=== PATIENT | female | born 2000 | race African-American/Black ===

== ENCOUNTER 2019-10-25 05:30 | Inpatient (IN) | payer OTHER, SELFPAY ==
[2019-10-25] VITALS (75 sets, daily range): BP systolic 75–128; BP diastolic 34–106; PULSE 73–100; RESP 15–22; TEMP 36.8; O2SAT 98–100; BMI 27.6
--- NOTE | 2019-10-25 04:42 | ED.PREGNANCY ---
HPI - General Chief complaint: OB/Uterine Contractions Stated complaint: preg complications Time Seen by Provider: 10/25/19 04:38 Source: patient Mode of arrival: wheelchair Limitations: no limitations History of Present Illness HPI Narrative: Patient is a 19-year-old female, G2, P0 0010 currently 15 weeks who presents for evaluation of loss of fluids and vaginal bleeding. Patient states began to experience some lower pelvic cramping around 10 PM yesterday evening, and then awakened this morning with a large gush of fluid, went to the bathroom and noticed she had bright red blood on her underwear. She reports severe lower pelvic cramping, feeling as if she is having contractions. Patient has a history of previous , D &C. She denies recent trauma, no recent intercourse. has been complicated by bleeding on the uterus patient reports. Pt states she did have an US which verified means . No dysuria or hematuria. No recent fever, chills, cough, congestion. Last oral intake 10 PM. Patient is unsure of her blood type. Pt states OB care has been at [facility] in [place], [place]. Related Data Home Medications Medication Instructions Recorded Confirmed Daily pkg PO 10/25/19 Allergies Allergy/AdvReac Type Severity Reaction Status Date / Time No Known Allergies Allergy Verified 10/25/19 05:06 Review of Systems Review of Systems: Narrative: CONSTITUTIONAL: Denies fever CARDIOVASCULAR: Denies chest pain RESPIRATORY: Denies cough or dyspnea. GASTROINTESTINAL: Denies abdominal pain, reports pelvic pain : Reports vaginal bleeding SKIN: Denies rash MUSCULOSKELETAL: Denies back pain NEUROLOGIC: Denies headache PMFSH Past Medical History Medical History (Updated 10/25/19 @ 12:42 by Delbert Quigley CRNA) Anemia Asthma Migraines Miscarriage Surgical History Surgical History H/O dilation and curettage Social History Social History Smoking status: Never smoker Gender identity (if verbalized by the patient): Female Exam Narrative: Exam Narrative: GENERAL: Awake, alert, conversant, uncomfortable appearing HEAD: Normocephalic, atraumatic. EYES: PERRLA and EOMI. ENT: Nares clear, no rhinorrhea or epistaxis. Mucous membranes moist. NECK: Supple. CHEST: No respiratory distress, breathing even and non labored HEART: Regular rate, sinus rhythm ABDOMEN:Non distended, non tender : Positive vaginal bleeding, positive placenta visualized, positive parts identified in the vagina EXTREMITIES: Normal range of motion. No edema. SKIN: Warm, dry, no rash. NEURO:No focal deficits. Alert and oriented x3 Course Reevaluation(s) Reevaluation #1: Dr. Tse would like the patient to be admitted under her and transferred over to labor and delivery at this point Date: 10/25/19 Time: 05:12 Consultations Consultation #1: Dr. Tse, on-call RESIDENTIAL INSURANCE INSPECTOR was contacted, is going to speak with labor and delivery to see if patient should be moved over to that department versus transferred Date: 10/25/19 Time: 05:09 Vital Signs Vital signs: Vital Signs Temperature 36.8 C 10/25/19 04:38 Pulse Rate 97 10/25/19 04:38 Respiratory Rate 22 H 10/25/19 04:38 Blood Pressure 117/90 10/25/19 04:38 Pulse Oximetry 98 10/25/19 04:38 Temperature 36.8 C 10/25/19 04:38 Pulse Rate 85 10/25/19 14:01 Respiratory Rate 19 10/25/19 12:00 Blood Pressure 126/73 10/25/19 14:01 Pulse Oximetry 100 10/25/19 12:49 MDM - OB/Uterine Contractions MDM Narrative Medical decision making narrative: Patient is a 19-year-old female who presented for evaluation of severe cramping, vaginal bleeding in the setting of early second trimester . At the time of assessment, patient is very uncomfortable appearing. She cannot walk. There is evidence of vaginal bl
[2019-10-25] MEDS: ONDANSETRON INJ 4 MG/2 ML VIAL IV PUSH ×2 (04:50→07:15)
[2019-10-25] MEDS: SODIUM CHLORIDE 0.9% IV 1,000 ML 999 ML IV CONT (04:53)
[2019-10-25] MEDS: MORPHINE SULFATE 4 MG/ML INJ IV PUSH (05:10)
[2019-10-25 05:20] LABS: Basophils Percent Auto 0.2 % (0.2-1.2); Eosinophils Absolute Auto 0.1 K/mm3 (0-0.3); Eosinophils Percent Auto 1.4 % (0-4.4); Hematocrit 32.2 % (37.0-47.0); Hemoglobin 10.2 g/dL (12.0-15.0); Immature Granulocyte Absolute 0.03 K/mm3 (0.00-0.031); Immature Granulocyte Percent A 0.3 % (0-0.5); Immature Platelet Fraction Pct 4.9 % (0.9-11.2); Lymphocytes Absolute Auto 2.38 K/mm3 (0.9-3.2); Lymphocytes Percent Auto 26.5 % (18.3-44.2); Mean Corpuscular HGB Conc 31.7 g/dl (32-36); Mean Corpuscular Hemoglobin 22.3 pg (26-34); Mean Corpuscular Volume 70.5 fl (80-100); Monocytes Absolute Auto 0.7 K/mm3 (0.1-0.6); Monocytes Percent Auto 7.7 % (2.6-8.5); Neutrophils Absolute Auto 5.7 K/mm3 (1.3-6.7); Neutrophils Percent Auto 63.9 % (45.5-73.1); Platelet Count Result 206 k/mm3 (150-375); Red Blood Count 4.57 M/mm3 (4.2-5.4); Red Cell Distribution Width 17.2 % (11.5-14.5)
[2019-10-25 05:25] LABS: INR 1.1; Prothrombin Time 13.6 Seconds (11.1-14.7)
[2019-10-25 05:26] LABS: Partial Thromboplastin Time 25.8 SECONDS (22.3-36.8)
[2019-10-25] MEDS: LACTATED RINGERS 1,000 ML 125 ML IV CONT ×2 (06:36→09:38)
--- NOTE | 2019-10-25 06:48 | PC.NURSE ---
see obix note
--- NOTE | 2019-10-25 06:55 | PC.NURSE ---
report received from ed charge nurse.
[2019-10-25] MEDS: miSOPROStol 200 MCG TABLET 600 MCG PO (08:02)
[2019-10-25 08:16] LABS: Basophils Percent Auto 0.3 % (0.2-1.2); Eosinophils Absolute Auto 0.1 K/mm3 (0-0.3); Eosinophils Percent Auto 1.1 % (0-4.4); Hematocrit 29.1 % (37.0-47.0); Hemoglobin 9.2 g/dL (12.0-15.0); Immature Granulocyte Absolute 0.02 K/mm3 (0.00-0.031); Immature Granulocyte Percent A 0.3 % (0-0.5); Immature Platelet Fraction Pct 5.1 % (0.9-11.2); Lymphocytes Absolute Auto 1.48 K/mm3 (0.9-3.2); Lymphocytes Percent Auto 19.6 % (18.3-44.2); Mean Corpuscular HGB Conc 31.6 g/dl (32-36); Mean Corpuscular Hemoglobin 22.4 pg (26-34); Mean Corpuscular Volume 70.8 fl (80-100); Monocytes Absolute Auto 0.6 K/mm3 (0.1-0.6); Monocytes Percent Auto 7.6 % (2.6-8.5); Neutrophils Absolute Auto 5.4 K/mm3 (1.3-6.7); Neutrophils Percent Auto 71.1 % (45.5-73.1); Platelet Count Result 189 k/mm3 (150-375); Red Blood Count 4.11 M/mm3 (4.2-5.4); Red Cell Distribution Width 17.2 % (11.5-14.5); White Blood Count 7.5 K/mm3 (4.5-10.0)
[2019-10-25 08:25] LABS: Glucose 93 mg/dL (65-105)
[2019-10-25 09:07] LABS: HIV 1/2 Ab P24 Ag Result Negative (Negative)
[2019-10-25] MEDS: METHYLERGONOVINE MALEATE 0.2 MG/ML VIAL IM (09:10)
[2019-10-25] MEDS: OXYTOCIN 30 UNITS/NS 500 ML 30 UNITS/500 ML BAG 999 UNITS IV CONT (09:50)
[2019-10-25] MEDS: miSOPROStol 200 MCG TABLET 800 MCG (10:04)
[2019-10-25] MEDS: OXYTOCIN 30 UNITS/NS 500 ML 30 UNITS/500 ML BAG 125 UNITS IV CONT (10:13)
--- NOTE | 2019-10-25 10:21 | PM.IMHP ---
H&P: HPI History of Present Illness Chief complaint: IUFD Narrative: Gela Avilez is a 19 year old female @ 15wga who presented to the ER with complaints of pelvic pain, bleeding, and leakage of fluid. She reports routine care in [place] and was told she was having a normal (normal labs and US). Last week she reports being at work and had vaginal bleeding. She was told that maybe a blood vessel burst in her cervix and was placed on bed rest x1wk. She reports the bleeding slowed but continued having spotting until 1-2 days ago. She reports cramping pain starting at ~1030pm last night. She went to sleep and woke up around 250am with severe cramping x1 hour. She states she sat up in bed and instantly felt bleeding and leakage of fluid. When she presented to the ER, on exam she was found to have the feet protruding from the vagina and no heart tones. No fever, chills, CP, vision changes, vaginal discharge. She had not started feeling movement. Review of Systems Constitutional: Constitutional: Denies body ache(s) and Denies chills Eyes: Eyes: Denies blurry vision Cardiovascular: Cardiovascular: Denies chest pain and Denies palpitations Respiratory: Respiratory: Denies cough and Denies dyspnea Gastrointestinal: Gastrointestinal: Reports abdominal pain, Denies nausea and Denies vomiting Genitourinary: Genitourinary: Reports pelvic pain and Reports vaginal discharge (leakage of fluid + vaginal bleeding) Neurologic: Reports headache(s) [facility] Past Medical History Medical History Asthma Miscarriage Surgical History Surgical History H/O dilation and curettage Social History Social History Smoking status: Never smoker Gender identity (if verbalized by the patient): Female Meds Home Medications and Allergies Home Medications Medication Instructions Recorded Confirmed Type [id number] fum-folic ac-om3 pkg PO 10/25/19 History [Daily ] Allergies Allergy/AdvReac Type Severity Reaction Status Date / Time No Known Allergies Allergy Verified 10/25/19 05:06 Vital Signs Vital Signs - 24 hr 07/26/20 04:38 10/25/19 05:15 10/25/19 05:40 Temperature 36.8 C Pulse Rate 97 89 89 Respiratory Rate 22 H 20 20 Blood Pressure 117/90 118/52 L 118/62 Pulse Oximetry 98 100 100 10/25/19 06:13 10/25/19 08:39 10/25/19 09:01 Temperature Pulse Rate 89 89 96 Respiratory Rate Blood Pressure 128/65 126/58 L 112/71 Pulse Oximetry 10/25/19 09:36 10/25/19 09:40 10/25/19 09:41 Temperature Pulse Rate 92 91 Respiratory Rate Blood Pressure 109/62 114/53 L Pulse Oximetry 100 100 10/25/19 09:42 10/25/19 09:46 10/25/19 09:47 Temperature Pulse Rate 85 Respiratory Rate Blood Pressure 116/43 L Pulse Oximetry 100 100 10/25/19 09:51 10/25/19 09:52 10/25/19 09:56 Temperature Pulse Rate 83 84 Respiratory Rate Blood Pressure 109/34 L 112/42 L Pulse Oximetry 100 10/25/19 09:57 10/25/19 10:01 10/25/19 10:02 Temperature Pulse Rate 82 Respiratory Rate Blood Pressure 116/45 L Pulse Oximetry 100 100 10/25/19 10:06 10/25/19 10:07 10/25/19 10:11 Temperature Pulse Rate 81 87 Respiratory Rate Blood Pressure 118/51 L 115/48 L Pulse Oximetry 100 10/25/19 10:12 10/25/19 10:14 10/25/19 10:16 Temperature Pulse Rate Respiratory Rate Blood Pressure Pulse Oximetry 100 100 100 10/25/19 10:17 10/25/19 10:18 10/25/19 10:21 Temperature Pulse Rate 77 78 86 Respiratory Rate Blood Pressure 75/57 L 90/51 L 110/54 L Pulse Oximetry 100 Exam Const: General: in distress (with contractions) mild Resp: Effort & Inspection: normal respiratory effort Cardio: Rate: regular rate : Other: mild vaginal bleedin
--- NOTE | 2019-10-25 10:35 | WPDANESEPPF ---
Anes - Initial Pre Proc Eval Procedure: D&C Date/Time: 10/25/19 10:34 Surgeon: Yary Tse MD Pre Op Diagnosis: IUFD Patient Data Age: 19 Gender: F Height: 1.68 m Weight: 77.5 kg Last Vital Signs Temp 36.8 C 10/25/19 04:38 Pulse 78 10/25/19 12:31 Resp 19 10/25/19 12:00 BP 127/56 L 10/25/19 12:31 Pulse Ox 100 10/25/19 12:39 Allergies Allergy/AdvReac Type Severity Reaction Status Date / Time No Known Allergies Allergy Verified 10/25/19 05:06 Home Medications Medication Instructions Recorded Confirmed Type -hbta fum-folic ac-om3 pkg PO 10/25/19 History [Daily ] Laboratory Tests 10/25/19 10/25/19 10/25/19 04:56 04:56 04:56 WBC 9.0 K/mm3 K/mm3 (4.5-10.0) RBC 4.57 M/mm3 M/mm3 (4.2-5.4) Hgb 10.2 g/dL L g/dL (12.0-15.0) Hct 32.2 % L % (37.0-47.0) MCV 70.5 fl L fl (80-100) MCH 22.3 pg L pg (26-34) MCHC 31.7 g/dl L g/dl (32-36) RDW 17.2 % H % (11.5-14.5) Plt Count 206 k/mm3 k/mm3 (150-375) MPV TNP Immature Gran % (Auto) 0.3 % % (0-0.5) Neut % (Auto) 63.9 % % (45.5-73.1) Lymph % (Auto) 26.5 % % (18.3-44.2) [place] % (Auto) 7.7 % % (2.6-8.5) Eos % (Auto) 1.4 % % (0-4.4) Baso % (Auto) 0.2 % % (0.2-1.2) Lymph # (Auto) 2.38 K/mm3 K/mm3 (0.9-3.2) [place] # (Auto) 0.7 K/mm3 H K/mm3 (0.1-0.6) Eos # (Auto) 0.1 K/mm3 K/mm3 (0-0.3) Baso # (Auto) 0.0 K/mm3 K/mm3 (0.0-0.1) Abs Immat Gran (auto) 0.03 K/mm3 K/mm3 (0.00-0.031) Absolute Neuts (auto) 5.7 K/mm3 K/mm3 (1.3-6.7) Absolute Nucleated RBC 0.0 K/mm3 K/mm3 (0.0-0.012) Nucleated RBC % 0.0 % % (0.0-0.2) % Immature Plt Fraction 4.9 % % (0.9-11.2) PT INR APTT LA PTT Screen dRVVT Screen dRVVT Additional Test Lupus Anticoag Interp Glucose TSH Free T4 Beta HCG, Quant 71445.00 mIU/ML mIU/ML Urine Color Urine Appearance Urine pH Ur Specific [place] Urine Protein Urine Glucose (UA) Urine Ketones Ur Blood (Man) Urine Nitrate Urine Bilirubin Urine Urobilinogen Leukocyte Esterase Rfl Urine RBC Urine WBC Urine Opiates Screen Urine Methadone Screen Ur Barbiturates Screen Ur Phencyclidine Scrn Ur Amphetamine Screen U Benzodiazepines Scrn Urine Cocaine Screen U Cannabinoids Screen Beta-2-GPI IgG Ab Beta-2-GPI IgA Ab Beta-2-GPI IgM Ab Anti-Cardiolipin IgG Ab Anti-Cardiolipin IgA Ab Anti-Cardiolipin IgM Ab RPR CMV IgG Ab CMV IgM Ab HIV 1&2 Ab/P24 Ag 4thGn Blood Type B Positive Antibody Screen Negative Screen TNP Baby's Blood Type TNP Baby's PILY TNP KB Hemoglobin Doses of RhIg Required 0 10/25/19 10/25/19 10/25/19 05:04 07:55 07:55 WBC RBC Hgb Hct MCV MCH MCHC RDW Plt Count MPV Immature Gran % (Auto) Neut % (Auto) Lymph % (Auto) [place] % (Auto) Eos % (Auto) Baso % (Auto) Lymph # (Auto) [place] # (Auto) Eos # (Auto) Baso # (Auto) Abs Immat Gran (auto) Absolute Neuts (auto)
[2019-10-25 10:44] LABS: Free T4 Free Thyroxine 1.19 ng/mL (0.78-2.19)
--- NOTE | 2019-10-25 10:44 | PM.OBPRVD ---
OB - Delivery Note Procedure Delivery date: 10/25/19 events: Premature Rupture of Membrane Delivery augmentation: rupture of membranes (spontaneous; misoprostol procotol then used for augmentation) Delivery monitor: none Route of delivery: breech extraction Laceration description: None Specimen: Yes Estimated blood loss (mL): 600 Anesthesia type: IV sedation Disposition: floor Complications: Retained placenta s/p conscious sedation and bedside D&C with removal of placenta Narrative: On transfer to Labor and delivery, parts were noted to be protruding from the vagina. On gentle digital exam the head was trapped in the cervix. The patient was counseled on all risks and benefits of induction with Misoprostol and possible need of D and C for retained placenta and the appropriate consents were signed. 600 micrograms of misoprostol was placed buccally to help with delivery of the fetus. Approximately 1 hour later the patient reported significant cramping with desire to push. With good maternal effort the head delivered without complications. No movements were noted. The umbilical cord was clamped and cut. The patient and her significant other did not desire to see the fetus. With gentle traction on the cord, the placenta did not detach. Due to concern for cord avulsion and minimal bleeding, plan was made to give the patient Methergine IM and await spontaneous delivery. However after approximately 30 minutes, the patient was having increased bleeding (approximately 200-300 cc) without delivery of the placenta even with maternal pushing. Fentanyl was given IV for pain control to allow for a vaginal exam, however the patient could not tolerate it. The patient was counseled for conscious sedation to allow for manual removal of the placenta with D&C and she consented. Once the patient was comfortable a bimanual exam was performed and the cervix was found to be 3 centimeters dilated with an adherent posterior placenta. The plane between the placenta and uterus was easily dissected using 1 finger and a large portion of the placenta was teased out of the uterus. A gentle curettage was performed using a lap with removal of more placenta tissue, however the cervix remained dilated and bleeding continued. Bedside ultrasound performed showed small amount of tissue remaining in the fundal/posterior wall. A speculum was then placed within the vagina. A gentle curettage using a metal curettage (wanda) was performed with removal of more tissue. Good uterine tone was noted, the cervix close to approximately 1 centimeter, and the bleeding significantly decreased. Repeat bedside ultrasound showed a thin lining. 800 micrograms of Misoprostol was then placed rectally to allow for continued good uterine tone. Sponge, lap, and instrument counts were correct at the end of the procedure. Patient tolerated the procedure well and conscious sedation was weaned off. Baby Date of : 10/25/19 Time of : 09:02 Weeks of gestation at delivery: 15 gender: Ambiguous presentation: breech score one minute: 0 score five minutes: 0 Narrative: demise
--- NOTE | 2019-10-25 10:49 | PC.NURSE ---
RN called Dr. Tse and requested her presence. 0900 Dr. Tse is at bedside assessing patient. Delivery of demise at 0902. at 0935 Marnie Quigley CRNA is at bedside for retained placenta procedure in room 110. 0946 Patient is in [facility]. Placenta is removed with Dr. Tse assistance. Uterus firm, midline, and five below umbilicus.
[2019-10-25 12:38] LABS: Add Urine Microscopic? YES; Appearance Urine Cloudy (Clear); Bilirubin Urine Negative (Negative); Blood Urine 3+ (Negative); Color Urine Red (Yellow); Glucose Urine UA Negative (Negative); Ketones Urine Negative (Negative); Leukocyte Esterase Ur Negative LEU/UL (Negative); Nitrate Urine Negative (Negative); Protein Urine 3+ mg/dL (Negative); RBC Urine >75 /hpf (0-2); Specific Grav Ur 1.015 (1.001-1.035); Urobilinogen Urine Negative mg/dL (<2.0)
[2019-10-25 12:53] LABS: Amphetamine Screen Urine Negative (Negative); Barbiturate Screen Urine Negative (Negative); Benzodiazepines Screen Urine Negative (Negative); Cannabinoid Screen Urine Negative (Negative); Cocaine Screen Urine Negative (Negative); Methadone Screen Urine Negative (Negative); Opiate Screen Urine Positive (Negative); Phencyclidine Screen Urine Negative (Negative)
[2019-10-25] MEDS: ACETAMINOPHEN 500 MG TABLET 1000 MG PO (12:59)
[2019-10-25] MEDS: METHYLERGONOVINE MALEATE 0.2 MG TABLET PO ×2 (13:02→18:17)
[2019-10-25] MEDS: IBUPROFEN 600 MG TABLET PO (15:58)
--- NOTE | 2019-10-25 16:13 | PC.NURSE ---
Met briefly with Pt and FOB; both seem very tired, and appropriately emotional. Share program and support presented to them, to pt, with commitment to f/u with her once she leaves the hospital. Pt agreed to f/u.
[2019-10-25 16:30] LABS: Hematocrit 27.4 % (37.0-47.0); Hemoglobin 8.8 g/dL (12.0-15.0)
[2019-10-25 17:35] LABS: Rubella IgG Antibody > 120.0 IU/ML
--- NOTE | 2019-10-25 18:05 | PC.NURSE ---
Placenta taken to lab. Fetus taken to pathology refrigerator for gross review- copy of Disposition-Notification Form with fetus.
[2019-10-25] MEDS: POLYSACCHARIDE IRON COMPLEX 150 MG CAPSULE PO (18:17)
[2019-10-26 10:07] LABS: Rapid Plasma Reagin Non-Reactive (NonReactive)
[2019-10-28 17:27] LABS: CMV IgG Antibody 0.74 U/mL (<0.60)
[2019-10-29 03:01] LABS: Anti Cardio Antibody IgM 13 MPL (<=12); Anti Cardiolipin Antibody IgA <11 APL (<=11); Anti Cardiolipin Antibody IgG <14 GPL (<=14)
[2019-10-29 19:03] LABS: CMV IgM Antibody <30.00 AU/mL (<30.00)
[2019-10-30 02:47] LABS: Lupus dRVVT 1:1 Mix Interpreta Not Indicated; Lupus dRVVT Screen 32 sec (<=45); PTT-LA Screen 31 sec (<=40)
--- NOTE | 2019-11-02 11:26 | PM.OBDSVD ---
DS: Admitting Diagnosis Admitting Diagnosis Admitting Diagnosis: Complete or unspecified spontaneous without complication DS: Discharge Diagnosis Discharge Diagnosis (1) Vaginal bleeding before 22 weeks gestation: Code(s): O20.9 - Hemorrhage in early , unspecified Status: Acute (2) Miscarriage: Code(s): O03.9 - Complete or unspecified spontaneous without complication Status: Acute OB - DS: Summary OB Procedures : None OB Procedures Intrapartum: Spontaneous Vag Delivery OB Procedures: : Curettage (retained placenta) Peripartum Data Delivery Method: Natural Vaginal Laceration description: None complications: none [place] 1: Gender: Ambiguous Disposition of : (15 weeks) Status at Discharge Functional status at discharge: independent ambulation Overall status at discharge: patient is back to baseline Time Spent with Patient Time attestation: Total time spent providing and/or coordinating discharge services: Exam Const: General: comfortable, no acute distress, alert and awake Resp: Effort & Inspection: normal respiratory effort Cardio: Rate: regular rate GI: Inspection: non-distended GI Palp: Yes Soft to palpation and No Tenderness to palpation present (GI) : Other: normal lochia Psych: Affect: Sad affect present (but appropriate) Attitude: cooperative DS: Data Data Completed and Pending Completed studies during hospitalization: Pending at discharge 10/25/19 15:22 Surgical [PTH] Routine Discharge Plan Discharge Attending physician on discharge: Yary Tse Consulting providers: Jo Ann Osman Discharging Clinician: Yary Tse Anticipated Discharge Date/Time: 10/25/19 20:00 Patient Disposition: Home, Self-Care Activity: pelvic rest Diet: regular Discharge Instructions: Follow-Up: Call your Provider's office for an appointment to be seen in: Return to [facility] for a follow-up visit: Appointment Date/Time: at What to expect at your follow-up visit: Call [phone] if you are unable to keep your appointment time. EPISIOTOMY/PERINEAL CARE: * Until bleeding stops, use your gustavo bottle after urinating * Change your pad frequently throughout the day * You may take sitz baths several times a day (fill your bathtub with warm water and soak for 20 minutes.) Do NOT bathe in the water * No tub baths until seen by your physician - You may shower BLEEDING: * Each individual will experience vaginal bleeding, but it will vary with each situation and individual woman. * Vaginal bleeding will go thru cycles-from bright red, to pinkish to a white, creamy discharge. This is considered normal. You may also experience a brownish discharge which is also normal. DIET AND NUTRITION: * Eat at least 3 regular, well-balanced meals per day: include all 4 food groups daily. * You may prefer 6 small meals. * Drink 6-8 glasses of water or non-caffeinated beverages per day. * Loss of appetite is common with loss. We encourage you to try to eat; this will help with both your physical and emotional health. ACTIVITY: * Rest as much as possible during the day. * Do not exercise or lift anything heavier than 10 pounds (such as laundry or other children.) * Avoid stairs or driving as much as possible, especially if you are taking pain medication. * Do not put anything into the vagina. No douching, tampons, or sexual activity until seen and released by your physician. * Listen to your body, and do not do what is uncomfortable or painful. EMOTIONAL HEALTH: * This is a very difficult and sad time for you and your family, friends, and other children. It may be helpful to refer to the booklets on loss that you received. * It is okay to be sad and to cry. Denial, anger, and guilt are also normal stages that you and your family may
== END 2019-10-25 18:23 | disposition home or self-care (01) | DRG 541 ==
PROVIDERS: Emergency Medicine; Admitting Provider Obstetrics & Gynecology; Visit Provider Obstetrics & Gynecology
DX: O42.912 Preterm premature rupture of membranes, unspecified as to length of time between rupture and onset of labor, second trimester (principal); O36.4XX0 Maternal care for intrauterine death, not applicable or unspecified; O72.0 Third-stage hemorrhage; Z37.1 Single stillbirth; O32.8XX0 Maternal care for other malpresentation of fetus, not applicable or unspecified; Z3A.15 15 weeks gestation of pregnancy
CPT/HCPCS: 36415; 80307; 81001; 82947; 84439; 84443; 84702; 85014; 85018; 85025; 85055; 85460; 85461; 85610; 85613; 85730; 86146; 86147; 86592; 86644; 86645; 86703; 86762; 88300; 88305; 88307; A9270; G0432; J2210; J2270; J2405; J2590; J2704; J3010; J7030; J7120

== ENCOUNTER 2020-04-05 17:16 | Emergency (ER) | payer OTHER, SELFPAY ==
--- NOTE | ~2020-04-05 | US_ITS ---
EXAMINATION: US OB <= 14 weeks fetus EXAM DATE: 04/05/2020 18:24 INDICATION: , 1st trimester. Vaginal bleeding. TECHNIQUE: Pelvic obstetrical transabdominal sonogram was performed by a technologist. There are mu ltiple grayscale and Doppler images available for interpretation. There are no earlier studies of th is gestation for comparison. FINDINGS: Uterus measures 10.3 x 9.5 x 7.8 cm. There is intrauterine gestation sac. pole with heart rate confirmed at 176 beats per minute. The 4.7 cm crown-rump length corresponds to estimated gestational age by ultrasound of 11 weeks 3 days, estimated date of confinement 10/22. Yolk sac is i dentified. There is moderate-sized subchorionic hemorrhage, 30 mm in diameter by up to 7 mm in thickness. There is C shaped hypoechoic to anechoic well-circumscribed region contiguous to the head and neck, possible cystic hygroma or other abnormality. Right ovary is morphologically normal, left not visualized. IMPRESSION: 1. Live intrauterine gestation with moderate size subchorionic hemorrhage. 2. Cystic region along neck, could be cystic hygroma or other anomaly. 3. Consider follow-up ultrasound. Reviewed, dictated and finalized at location [facility] IMPRESSION: 1. Live intrauterine gestation with moderate size subchorionic hemorrhage. 2. Cystic region along neck, could be cystic hygroma or other anom jose j. 3. Consider follow-up ultrasound.
[2020-04-05 17:24] VITALS: BP 115/57; PULSE 19; RESP 18; TEMP 36.4; O2SAT 100
[2020-04-05 17:41] VITALS: BP 111/55; PULSE 71
[2020-04-05 17:43] VITALS: BP 114/54; PULSE 77
[2020-04-05 17:47] VITALS: BP 96/61; PULSE 90
--- NOTE | 2020-04-05 17:55 | ED.PREGNANCY ---
HPI - General Chief complaint: Vaginal Bleeding Stated complaint: 10 wks preg, bloody discharge Time Seen by Provider: 04/05/20 17:20 Source: patient Mode of arrival: ambulatory Limitations: no limitations History of Present Illness HPI Narrative: This patient is a 19 year old female 10 weeks GA who presents for evaluation of bloody vaginal discharge. Patient states she was diagnosed with bacterial vaginosis and she has been taking vaginal antibiotic cream for 4 days. She noticed at 4 pm today that she had bloody discharge in her underwear. She denies abdominal pain or cramping. Her OBGYN is Dr Tse, and she has had confirmed IUP on ultrasound. Related Data Home Medications Medication Instructions Recorded Confirmed Daily pkg PO 10/25/19 Allergies Allergy/AdvReac Type Severity Reaction Status Date / Time No Known Allergies Allergy Verified 04/05/20 17:28 Review of Systems Review of Systems: All systems reviewed & are unremarkable except as noted in HPI and below Constitutional: Constitutional: Denies chills and Denies fever(s) Cardiovascular: Cardiovascular: Denies chest pain Gastrointestinal: Gastrointestinal: Denies abdominal pain, Denies nausea and Denies vomiting [facility] Past Medical History Medical History (Updated 04/05/20 @ 19:21 by Mariah Aguilar MD) Anemia Asthma Migraines Miscarriage Surgical History Surgical History H/O dilation and curettage Social History Social History Smoking status: Never smoker Gender identity (if verbalized by the patient): Female Exam Const: General: alert Orientation/consciousness: patient oriented x3 Resp: Effort & Inspection: normal respiratory effort and no retractions Auscultation: clear to auscultation bilaterally Cardio: Rate: regular rate Rhythm: regular rhythm Heart sounds: no murmurs GI: GI Palp: Yes Soft to palpation, No Tenderness to palpation present (GI) and No Guarding due to palpation present (GI) Auscultation: normal bowel sounds : Speculum Exam - Cervix: Cervical os closed Other: curdish discharge with pink tinge, likely antibiotics cream with some blood Skin: General skin exam: normal color Rashes: no rashes Neuro: General: patient oriented x3 and moves all extremities Course Consultations Consultation #1: I discussed ultrasound results with Dr. Bronson. He states for pain to call office tomorrow to get scheduled for follow up ultrasound to assess cyst structure on fetus. Date: 04/05/20 Time: 19:18 Vital Signs Vital signs: Vital Signs Temperature 97.6 F 04/05/20 17:24 Pulse Rate 19 L 04/05/20 17:24 Respiratory Rate 18 04/05/20 17:24 Blood Pressure 115/57 L 04/05/20 17:24 Pulse Oximetry 100 04/05/20 17:24 Temperature 97.6 F 04/05/20 17:24 Pulse Rate 90 04/05/20 17:47 Respiratory Rate 18 04/05/20 17:24 Blood Pressure 96/61 L 04/05/20 17:47 Pulse Oximetry 100 04/05/20 17:24 MDM - OB/Uterine Contractions Lab Data Attestation: I reviewed the patient's lab results. Result diagrams: 04/05/20 18:28 Labs: Lab Results 04/05/20 04/05/20 04/05/20 Range/Units 18:28 18:28 18:28 WBC 6.8 (4.5-10.0) K/mm3 RBC 4.80 (4.2-5.4) M/mm3 Hgb 10.1 L (12.0-15.0) g/dL Hct 32.4 L (37.0-47.0) % MCV 67.5 L (80-100) fl MCH 21.0 L (26-34) pg MCHC 31.2 L (32-36) g/dl RDW 20.5 H (11.5-14.5) % Plt Count 239 (150-375) k/mm3 MPV TNP Immature Gran % (Auto) 0.3 (0-0.5) % Neut % (Auto) 58.8 (45.5-73.1) % Lymph % (Auto) 30.4 (18.3-44.2) % [place] % (Auto) 7.8 (2.6-8.5) % Eos % (Auto) 2.4 (0-4.4) % Baso % (Auto) 0.3 (0.2-1.2) % Lymph # (Auto) 2.06 (0.9-3.2) K/mm3 [place] # (Auto) 0.5 (0.1-0.6) K/mm3 Eos # (Auto) 0.2 (0-0.3) K/mm3 Baso # (Auto) 0.0
[2020-04-05 18:44] LABS: Basophils Percent Auto 0.3 % (0.2-1.2); Eosinophils Absolute Auto 0.2 K/mm3 (0-0.3); Eosinophils Percent Auto 2.4 % (0-4.4); Hematocrit 32.4 % (37.0-47.0); Hemoglobin 10.1 g/dL (12.0-15.0); Immature Granulocyte Absolute 0.02 K/mm3 (0.00-0.031); Immature Granulocyte Percent A 0.3 % (0-0.5); Immature Platelet Fraction Pct 7.2 % (0.9-11.2); Lymphocytes Absolute Auto 2.06 K/mm3 (0.9-3.2); Lymphocytes Percent Auto 30.4 % (18.3-44.2); Mean Corpuscular HGB Conc 31.2 g/dl (32-36); Mean Corpuscular Volume 67.5 fl (80-100); Monocytes Absolute Auto 0.5 K/mm3 (0.1-0.6); Monocytes Percent Auto 7.8 % (2.6-8.5); Neutrophils Percent Auto 58.8 % (45.5-73.1); Platelet Count Result 239 k/mm3 (150-375); Red Cell Distribution Width 20.5 % (11.5-14.5); White Blood Count 6.8 K/mm3 (4.5-10.0)
[2020-04-05 18:57] LABS: Ovalocytes 1+ (NORMAL); Platelet Estimate Adequate (Adequate); Target Cells 1+ (NORMAL)
== END 2020-04-05 19:42 | disposition home or self-care (01) ==
PROVIDERS: Emergency Provider General Practice; PCP Obstetrics & Gynecology
DX: O20.8 Other hemorrhage in early pregnancy (principal); O36.8910 Maternal care for other specified fetal problems, first trimester, not applicable or unspecified; Z3A.10 10 weeks gestation of pregnancy
CPT/HCPCS: 36415; 76801; 84702; 85025; 85055; 85461; 99284

== ENCOUNTER 2020-05-26 12:31 | Emergency (ER) | payer OTHER, SELFPAY ==
--- NOTE | 2020-05-26 12:31 | ECG_ITS ---
Measurements Intervals [place] Rate: 89 P: 73 MA: 152 QRS: 65 QRSD: 81 T: 41 QT: 347 QTc: 424 Interpretive Statements SINUS RHYTHM VENTRICULAR PREMATURE COMPLEX RSR' IN V1 OR V2, CONSIDER RIGHT VENTRICULAR HYPERTROPHY OR RIGHT VCD BASELINE ARTIFACT- I, II, III, AVL, AVF, V3 BORDERLINE ECG Electronically Signed On 05-30-2020 8:48:25 TRANSCRIPT CLERK by Shelton Anthony D.O.
[2020-05-26 12:34] VITALS: BP 120/42; PULSE 96; RESP 30; TEMP 36.6; O2SAT 100
[2020-05-26 12:40] VITALS: O2SAT 100
[2020-05-26] MEDS: methylPREDNISolone SOD SUCC 125 MG VIAL 62.5 MG IV PUSH (12:44)
[2020-05-26] MEDS: LORazepam INJ (*CRX) 2 MG/ML VIAL 0.5 MG IV PUSH (12:45)
[2020-05-26 12:57] VITALS: O2SAT 100
[2020-05-26 12:58] VITALS: BP 104/48; PULSE 78; RESP 18; O2SAT 98
[2020-05-26 13:19] LABS: Anion Gap 8 mmol/L (8-16); Blood Urea Nitrogen 9 mg/dL (7-17); Calcium 9.6 mg/dL (8.4-10.2); Carbon Dioxide 20 mmol/L (22-30); Chloride 110 mmol/L (98-107); Estimated CRCL calculation 136 ml/min; Estimated Glomerular Filt Rate > 60; Glucose 85 mg/dL (65-105); Potassium 3.1 mmol/L (3.4-5.0); Sodium 138 mmol/L (137-145)
[2020-05-26 13:21] LABS: Basophils Percent Auto 0.3 % (0.2-1.2); Eosinophils Absolute Auto 0.2 K/mm3 (0-0.3); Eosinophils Percent Auto 2.9 % (0-4.4); Hematocrit 31.9 % (37.0-47.0); Hemoglobin 10.1 g/dL (12.0-15.0); Immature Granulocyte Absolute 0.01 K/mm3 (0.00-0.031); Immature Granulocyte Percent A 0.2 % (0-0.5); Immature Platelet Fraction Pct 5.8 % (0.9-11.2); Lymphocytes Absolute Auto 2.23 K/mm3 (0.9-3.2); Mean Corpuscular HGB Conc 31.7 g/dl (32-36); Mean Corpuscular Hemoglobin 21.8 pg (26-34); Mean Corpuscular Volume 68.9 fl (80-100); Monocytes Absolute Auto 0.8 K/mm3 (0.1-0.6); Monocytes Percent Auto 11.6 % (2.6-8.5); Neutrophils Absolute Auto 3.3 K/mm3 (1.3-6.7); Platelet Count Result 182 k/mm3 (150-375); Red Blood Count 4.63 M/mm3 (4.2-5.4); Red Cell Distribution Width 19.8 % (11.5-14.5); White Blood Count 6.6 K/mm3 (4.5-10.0)
[2020-05-26 13:54] VITALS: BP 106/67; PULSE 78; RESP 16; O2SAT 98
--- NOTE | 2020-05-26 14:02 | ED.SOB ---
HPI - SOB/Dyspnea General Chief Complaint: Shortness of Breath/Dyspnea Stated Complaint: Asthma Time Seen by Provider: 05/26/20 12:33 Source: patient Mode of arrival: ambulatory Limitations: no limitations History of Present Illness HPI Narrative: 19-year-old 3 para 0 about 5 months of gestation and with a history of asthma here with shortness of breath since this morning. Patient states that she could not find her inhaler. She denies any fever or chills no history of cough. MD elicited complaint: shortness of breath Pertinent past history: asthma Onset (ago): hour(s) (2) Severity: mild Exacerbating factors: nothing Relieving factors: nothing Known history of: asthma Associated symptoms: denies other symptoms Related Data Home Medications Medication Instructions Recorded Confirmed Daily pkg PO 10/25/19 Allergies Allergy/AdvReac Type Severity Reaction Status Date / Time No Known Allergies Allergy Verified 05/26/20 12:40 Review of Systems Review of Systems: All systems reviewed & are unremarkable except as noted in HPI and below Constitutional: Constitutional: Reports no additional constitutional complaints Eyes: Eyes: Reports no additional eye complaints ENT: Reports system reviewed and no additional complaints, except as documented Cardiovascular: Cardiovascular: Reports no additional cardiovascular complaints Respiratory: Respiratory: Reports as per HPI Gastrointestinal: Gastrointestinal: Reports no additional gastrointestinal complaints Musculoskeletal: Musculoskeletal: Reports no additional musculoskeletal complaints PMFSH Past Medical History Medical History Anemia Asthma Migraines Miscarriage Surgical History Surgical History H/O dilation and curettage Social History Social History Smoking status: Never smoker Gender identity (if verbalized by the patient): Female Exam Narrative: Exam Narrative: GENERAL: Well-appearing, hyperventilating. HEAD: Normocephalic, atraumatic. EYES: PERRLA and EOMI.. NECK: Supple. CHEST: Clear to auscultation. No respiratory distress. No wheeze HEART: Regular rate and rhythm. No murmur heard. Normal peripheral pulses. ABDOMEN: Soft, nontender .. EXTREMITIES: Normal range of motion. No edema. SKIN: Warm, dry, no rash. NEURO: No focal deficits. Alert and oriented x3. PSYCH: Normal mood and affect. Course Course Emergency Course: Patient was given 0.5 mg of Ativan IV along with Solu-Medrol. Did obtain CBC and chemistry which were normal, patient started feeling much better was able to talk without any difficulty informed her about the lab work. She does feel comfortable going home. Vital Signs Vital signs: Vital Signs Temperature 36.6 C 05/26/20 12:34 Pulse Rate 96 05/26/20 12:34 Respiratory Rate 30 H 05/26/20 12:34 Blood Pressure 120/42 L 05/26/20 12:34 Pulse Oximetry 100 05/26/20 12:34 Temperature 36.6 C 05/26/20 12:34 Pulse Rate 78 05/26/20 13:54 Respiratory Rate 16 05/26/20 13:54 Blood Pressure 106/67 05/26/20 13:54 Pulse Oximetry 98 05/26/20 13:54 MDM - SOB/Dyspnea Lab Data Result diagrams: 05/26/20 13:10 05/26/20 13:03 Labs: Lab Results 05/26/20 05/26/20 Range/Units 13:03 13:10 WBC 6.6 (4.5-10.0) K/mm3 RBC 4.63 (4.2-5.4) M/mm3 Hgb 10.1 L (12.0-15.0) g/dL Hct 31.9 L (37.0-47.0) % MCV 68.9 L (80-100) fl MCH 21.8 L (26-34) pg MCHC 31.7 L (32-36) g/dl RDW 19.8 H (11.5-14.5) % Plt Count 182 (150-375) k/mm3 MPV Not Reportable Immature Gran % (Auto) 0.2 (0-0.5) % Neut % (Auto) 51.0 (45.5-73.1) % Lymph % (Auto) 34.0 (18.3-44.2) % [place] % (Auto) 11.6 H (2.6-8.5) % Eos % (Auto) 2.9 (0-4.4) % Baso % (Auto) 0.3 (0.2-1.2) % Lym
[2020-05-26 14:48] VITALS: BP 104/49; PULSE 70; RESP 16; O2SAT 99
== END 2020-05-26 14:54 | disposition home or self-care (01) ==
PROVIDERS: Emergency Provider Family Medicine; PCP Obstetrics & Gynecology
DX: O99.342 Other mental disorders complicating pregnancy, second trimester (principal); F45.8 Other somatoform disorders; O99.012 Anemia complicating pregnancy, second trimester; D64.9 Anemia, unspecified; O99.512 Diseases of the respiratory system complicating pregnancy, second trimester; J45.909 Unspecified asthma, uncomplicated; O99.412 Diseases of the circulatory system complicating pregnancy, second trimester; I49.3 Ventricular premature depolarization; R94.31 Abnormal electrocardiogram [ECG] [EKG]; Z3A.00 Weeks of gestation of pregnancy not specified
CPT/HCPCS: 36415; 80048; 85025; 85055; 93005; 96374; 96375; 99284; J2060; J2930

== ENCOUNTER 2021-03-15 15:04 | Emergency (ER) | payer OTHER, SELFPAY ==
[2021-03-15 15:06] VITALS: BP 126/52; PULSE 87; RESP 16; TEMP 36.3; O2SAT 100
[2021-03-15 17:29] VITALS: BP 126/52; PULSE 87; RESP 16; TEMP 36.4; O2SAT 100
--- NOTE | 2021-03-15 18:26 | ED.GENADULT ---
HPI - General Adult General Chief complaint: Upper Respiratory Infection Stated complaint: ST Time Seen by Provider: 03/15/21 16:42 History of Present Illness HPI narrative: Patient is a 20-year-old female who presents ER with sore throat. Ongoing over the last couple days. Associate with fevers and chills. She also has fatigue. Occasionally has a scratchy throat and feels she needs to cough. Occasional hoarse voice. No known sick contacts. She is vaccinated against Covid. Related Data Home Medications Medication Instructions Recorded Confirmed Daily pkg PO 10/25/19 Allergies Allergy/AdvReac Type Severity Reaction Status Date / Time No Known Allergies Allergy Verified 03/15/21 17:27 Review of Systems Constitutional: Constitutional: Reports chills, Reports fatigue and Reports fever(s) ENT: Denies nasal congestion and Reports sore throat Respiratory: Respiratory: Denies cough and Denies dyspnea PMFSH Past Medical History Medical History Anemia Asthma Migraines Miscarriage Surgical History Surgical History H/O dilation and curettage Social History Social History Smoking status: Never smoker Gender identity (if verbalized by the patient): Female Exam Narrative: GENERAL: Well-appearing, well-nourished, and in no acute distress. HEAD: Normocephalic, atraumatic. ENT: Mucous membranes moist. Pharyngeal erythema without tonsillar hypertrophy or exudate. NECK: Mild lymphadenopathy anterior chain, trachea midline. CHEST: Clear to auscultation. No respiratory distress. HEART: Regular rate and rhythm. Normal peripheral pulses.. EXTREMITIES: Normal range of motion. No edema. NEURO: Alert and oriented x3. PSYCH: Normal mood and affect. Course Course Emergency Course: Patient informed of results. Discharge home with amoxicillin. Vital Signs Vital signs: Vital Signs Temperature 97.4 F L 03/15/21 15:06 Pulse Rate 87 03/15/21 15:06 Respiratory Rate 16 03/15/21 15:06 Blood Pressure 126/52 L 03/15/21 15:06 Pulse Oximetry 100 03/15/21 15:06 Temperature 97.6 F 12/15/21 17:29 Pulse Rate 87 03/15/21 17:29 Respiratory Rate 16 03/15/21 17:29 Blood Pressure 126/52 L 03/15/21 17:29 Pulse Oximetry 100 03/15/21 17:29 Medical Decision Making Vital Signs Vital Signs: Vital Signs Temperature 97.4 F L 03/15/21 15:06 Pulse Rate 87 03/15/21 15:06 Respiratory Rate 16 03/15/21 15:06 Blood Pressure 126/52 L 03/15/21 15:06 Pulse Oximetry 100 03/15/21 15:06 Temperature 97.6 F 03/15/21 17:29 Pulse Rate 87 03/15/21 17:29 Respiratory Rate 16 03/15/21 17:29 Blood Pressure 126/52 L 03/15/21 17:29 Pulse Oximetry 100 03/15/21 17:29 Lab Data Labs: Lab Results 03/15/21 Range/Units 17:10 SARS-CoV-2 RNA (RT-PCR) Pending Strep Screen Positive Group A Strep *(Reference Range: Negative)* Discharge Plan Discharge Clinical Impression: Strep throat Patient Disposition: Home, Self-Care Condition: Stable Instructions: Antibiotic Form, Strep Throat (ED) Additional Instructions: Return the ER if you have fever over 100.4 ?F, you cannot keep down food or water, you have additional concerns. Prescriptions: New amoxicillin 500 mg capsule 500 mg PO Q12H Qty: 20 RF: 0 No Action Daily [id number] mg-mcg-mg Combo Pack PO RF: 0 ibuprofen 800 mg tablet 800 mg PO TID PRN (Reason: pain) Qty: 30 RF: 0 methylergonovine [Methergine] 0.2 mg tablet 0.2 mg PO TID 2 Days Qty: 6 RF: 0 albuterol sulfate [Proventil HFA] 90 mcg/actuation HFA aerosol inhaler 1 inh inhalation QID PRN (Reason: shortness of breath or wheezing) Qty: 8.5 RF: 0 Follow-up/Referrals: PHYSICIAN,[employer]AM[employer]ER
[2021-03-17 14:41] LABS: SARS-CoV-2 RNA PCR Positive (Negative)
== END 2021-03-15 18:43 | disposition home or self-care (01) ==
PROVIDERS: Emergency Provider Emergency Medicine
DX: U07.1 COVID-19 (principal); J02.0 Streptococcal pharyngitis; Z86.2 Personal history of diseases of the blood and blood-forming organs and certain disorders involving the immune mechanism; Z87.09 Personal history of other diseases of the respiratory system; Z86.69 Personal history of other diseases of the nervous system and sense organs; Z87.59 Personal history of other complications of pregnancy, childbirth and the puerperium
CPT/HCPCS: 87880; 99283; C9803; U0003; U0005

== ENCOUNTER 2023-03-14 12:24 | Emergency (ER) | payer OTHER, SELFPAY ==
[2023-03-14 12:25] VITALS: BP 125/51; PULSE 63; RESP 18; TEMP 36.7; O2SAT 100
[2023-03-14 12:44] VITALS: BP 110/49; PULSE 76; RESP 16; O2SAT 100
[2023-03-14 13:12] LABS: Strep Group A RT-PCR NOT DETECTED (Negative)
--- NOTE | 2023-03-14 13:22 | ED.GENADULT ---
HPI - General Adult General Chief complaint: Upper Respiratory Infection Stated complaint: strep possibly Time Seen by Provider: 03/14/23 12:36 History of Present Illness HPI narrative: 22 old female presenting to the ED for evaluation of sore throat that started approximately 2 days ago. Patient states yesterday she did have a fever but it broke. Patient did have some associated nausea and vomiting yesterday. Patient denies any sick contacts. Patient denies any pain with eating or swallowing. Patient denies any chest pain or shortness of breath. Related Data Home Medications Medication Instructions Recorded Confirmed vits 75-iron 28 mg-folic pkg PO 10/25/19 acid 800 mcg-omega3 440 mg oral pack (Daily ) Allergies Allergy/AdvReac Type Severity Reaction Status Date / Time No Known Allergies Allergy Verified 03/14/23 12:43 Review of Systems Review of Systems: All systems reviewed & are unremarkable except as noted in HPI and below PMFSH Past Medical History Medical History Anemia Asthma Migraines Miscarriage Surgical History Surgical History H/O dilation and curettage Social History Social History Smoking status: Never smoker Gender identity (if verbalized by the patient): Female Exam Narrative: APPEARANCE: Well appearing, no pain, no distress, well-nourished. HEAD: normocephalic, atraumatic. EYES: PERRLA/EOMI, conjunctivae clear. NOSE: Normal no drainage EARS:TMS clear with good light reflex. THROAT: Pharynx clear, no exudate. NECK: Supple. No adenopathy, no masses. RESPIRATORY: Airway patent, respirations nonlabored. Clear to auscultation bilaterally, no rales, rhonchi, wheezing. CARDIOVASCULAR: Regular rate and rhythm without murmurs rubs or gallops. ABDOMINAL: Soft, nontender, nondistended, normal bowel sounds MUSCULOSKELETAL: Moves all extremities. Strength/ROM intact, No edema, No calf tenderness. NEURO: Alert. Cranial nerves II through XII intact. Grossly intact Course Course Emergency Course: 22-year-old female presents emergency department for evaluation of sore throat. Patient was negative for influenza RSV COVID and strep. Patient was updated on the results of her workup she was encouraged to take Tylenol and ibuprofen for pain control. all questions and concerns were addressed patient was comfortable with the plan for discharge and close follow-up Vital Signs Vital signs: Vital Signs Temperature 98.1 F 03/14/23 12:25 Pulse Rate 63 03/14/23 12:25 Respiratory Rate 18 03/14/23 12:25 Blood Pressure 125/51 L 03/14/23 12:25 Pulse Oximetry 100 03/14/23 12:25 Oxygen Delivery Room Air 03/14/23 12:25 Temperature 98.1 F 03/14/23 12:25 Pulse Rate 76 03/14/23 12:44 Respiratory Rate 16 03/14/23 12:44 Blood Pressure 110/49 L 03/14/23 12:44 Pulse Oximetry 100 03/14/23 12:44 Oxygen Delivery Room Air 03/14/23 12:44 Medical Decision Making Differential Diagnosis Differential Diagnosis: influenza, RSV, COVID, strep throat, viral pharyngitis Vital Signs Vital Signs: Vital Signs Temperature 98.1 F 03/14/23 12:25 Pulse Rate 63 03/14/23 12:25 Respiratory Rate 18 03/14/23 12:25 Blood Pressure 125/51 L 03/14/23 12:25 Pulse Oximetry 100 03/14/23 12:25 Oxygen Delivery Room Air 03/14/23 12:25 Temperature 98.1 F 03/14/23 12:25 Pulse Rate 76 03/14/23 12:44 Respiratory Rate 16 03/14/23 12:44 Blood Pressure 110/49 L 03/14/23 12:44 Pulse Oximetry 100 03/14/23 12:44 Oxygen Delivery Room Air 03/14/23 12:44 Lab Data Lab results reviewed: Yes I reviewed the patient's lab results. Labs: Lab Results 03/14/23 03/14/23 Range/Units 12:34 13:38 Influenza A (RT-PCR) Negative (Negative) Influenza B (RT-PCR
[2023-03-14 14:19] LABS: Influenza A QL RT-PCR Negative (Negative); Influenza B QL RT-PCR Negative (Negative); RSV RNA, RT-PCR Negative (Negative); SARS-CoV-2 RNA PCR Negative (Negative)
== END 2023-03-14 14:37 | disposition home or self-care (01) ==
PROVIDERS: Student in an Organized Health Care Education/Training Program; Emergency Provider Emergency Medicine
DX: J02.9 Acute pharyngitis, unspecified (principal); Z20.822 Contact with and (suspected) exposure to COVID-19; J45.909 Unspecified asthma, uncomplicated; Z86.2 Personal history of diseases of the blood and blood-forming organs and certain disorders involving the immune mechanism
CPT/HCPCS: 87637; 87651; 99283